=== PATIENT | male | born 1930 | race Caucasian/White ===

== ENCOUNTER 2017-08-08 08:22 | Inpatient (IN) | payer MEDICARE, OTHER ==
[2017-08-08] MEDS ORDERED: HYDROmorphone 1 MG/ML 1 ML SYRINGE IVP STA (08:32)
[2017-08-08] MEDS ORDERED: SODIUM CHLORIDE 0.9% 1,000 ML IV STA (08:32)
[2017-08-08] MEDS ORDERED: RX INFO: IV CONTRAST WAS GIVEN 1 EACH MISC MISCELLANE PRN (08:32)
--- NOTE | 2017-08-08 08:47 | ED ---
General Adult HPI - General Stated complaint: ABDOMINAL PAIN Time Seen by Provider: 08/08/17 08:24 Source: patient, EMS, RN notes reviewed Mode of arrival: EMS Limitations: no limitations - History of Present Illness Initial comments: 86-year-old male presents to the emergency Department chief complaint of abdominal hernial pain. Patient states had a hernia for many years the last night it started out and he cannot get it back in and now is red and tender. Patient denies any nausea or vomiting with this. Patient denies any fever chills. Patient states been on for about 12 hours. Patient states he was concerned due to the pain and the fact that it won't go back in [place] thought that he should be evaluated. Patient states is not currently having any other symptoms at this time. Patient denies any fever chills with this any changes in bowel or bladder habits. Patient denies any recent fever, chills, shortness of breath, chest pain, back pain, nausea vomiting, numbness or tingling, dysuria or hematuria, constipation or diarrhea, headaches or visual changes, or any other current symptoms. - Related Data Home Medications Medication Instructions Recorded Confirmed Ascorbic Acid [Vitamin C] 500 mg PO DAILY 08/08/17 08/08/17 Cholecalciferol [Vitamin D3] 500 unit PO Q48H 08/08/17 08/08/17 Docusate [Colace] 100 mg PO DAILY 08/08/17 08/08/17 Ferrous Sulfate [Feosol] 325 mg PO DAILY 08/08/17 08/08/17 Multivitamins, Thera [Multivitamin 1 tab PO DAILY 08/08/17 08/08/17 (formulary)] Omeprazole [PriLOSEC] 20 mg PO AC-BRKFST 08/08/17 08/08/17 amLODIPine [Norvasc] 2.5 mg PO BID 08/08/17 08/08/17 buPROPion SR [Wellbutrin Sr] 100 mg PO DAILY 08/08/17 08/08/17 cycloSPORINE [Restasis] 1 applicator BOTH EYES DAILY PRN 08/08/17 08/08/17 Allergies Allergy/AdvReac Type Severity Reaction Status Date / Time No Known Allergies Allergy Verified 08/08/17 09:30 Review of Systems ROS Statement: Those systems with pertinent positive or pertinent negative responses have been documented in the HPI. ROS Other: All systems not noted in ROS Statement are negative. Past Medical History Past Medical History: GERD/Reflux, Hypertension Additional Past Medical History / Comment(s): anemia History of Any Multi-Drug Resistant Organisms: None Reported Past Surgical History: Tonsillectomy Past Psychological History: Anxiety Smoking Status: Never smoker Past Alcohol Use History: None Reported Past Drug Use History: None Reported General Exam - General Exam Comments Initial Comments: General: The patient is awake and alert, in no distress, and does not appear acutely ill. Eye: Pupils are equal, round and reactive to light, extra-ocular movements are intact; there is normal conjunctiva bilaterally. No signs of icterus. Ears, nose, mouth and throat: There are moist mucous membranes and no oral lesions. Neck: The neck is supple, there is no tenderness. Cardiovascular: There is a regular rate and rhythm. No murmur, rub or gallop is appreciated. Respiratory: Lungs are clear to auscultation, respirations are non-labored, breath sounds are equal. No wheezes, stridor, rales, or rhonchi. Gastrointestinal: Soft, non-distended, patient does appear to have abdominal umbilical hernia that does appear to be non-reducible it is read. Minimal tenderness to palpation. abdomen without masses or organomegaly noted. There is no rebound or guarding present. No CVA tenderness. Bowel sounds are unremarkable. Back: There is no tenderness to palpation in the midline. There is no obvious deformity. No rashes noted. Musculoskeletal: Normal ROM, no tenderness, There is no pedal edema. There is no calf tenderness or swelling. Sensation intact. Pulses equal bilaterally 2+. Neurological: CN II-XII intact, There are no obvious motor or sensory deficits. Coordination appears grossly intact. Speech is normal. Skin: Skin is warm and dry and no rashes or lesions are noted. Psychiatric: Cooperative, appropriate mood & affect, normal judgment. Limitations: no limitations Course Vital Signs 08/08/17 08/08/17 08:31 10:41 Temperature 98.1 F 97.9 F Pulse Rate 63 70 Respiratory 18 15 Rate Blood Pressure 171/71 177/82 O2 Sat by Pulse 96 93 L Oximetry Medical Decision Making - Medical Decision Making 86-year-old male presents for abdominal wall hernia. This time the patient's CAT scan has been reviewed that does show a small bowel obstruction with an incarcerated hernia. Patient has no nausea and vomiting at this time. We will admit the patient to Dr. Cruz for further evaluation and care. We will start Rocephin and Flagyl for the patient. Patient states his pain is tolerable. At this time we will admit the patient in agreement with plan. - Lab Data Result diagrams: 08/08/17 08:50 08/08/17 08:50 Lab Results 08/08/17 08/08/17 08/08/17 Range/Units 08:50 08:50 08:50 WBC 9.9 (3.8-10.6) k/uL RBC 4.89 (4.30-5.90) m/uL Hgb 14.3 (13.0-17.5) gm/dL Hct 42.7 (39.0-53.0) % MCV 87.4 (80.0-100.0) fL MCH 29.2 (25.0-35.0) pg MCHC 33.4 (31.0-37.0) g/dL RDW 14.9 (11.5-15.5) % Plt Count 173 (150-450) k/uL Neutrophils % 88 % Lymphocytes % 5 % Monocytes % 5 % Eosinophils % 1 % Basophils % 0 % Neutrophils # 8.7 H (1.3-7.7) k/uL Lymphocytes # 0.5 L (1.0-4.8) k/uL Monocytes # 0.5 (0-1.0) k/uL Eosinophils # 0.1 (0-0.7) k/uL Basophils # 0.0 (0-0.2) k/uL Sodium 133 L (137-145) mmol/L Potassium 4.4 (3.5-5.1) mmol/L Chloride 98 (98-107) mmol/L Carbon Dioxide 24 (22-30) mmol/L Anion Gap 11 mmol/L BUN 16 (9-20) mg/dL Creatinine 0.78 (0.66-1.25) mg/dL Est GFR (MDRD) Af Amer >60 (>60 ml/min/1.73 sqM) Est GFR (MDRD) Non-Af >60 (>60 ml/min/1.73 sqM) Glucose 108 H (74-99) mg/dL Plasma Lactic Acid Willie 1.0 (0.7-2.0) mmol/L Calcium 8.7 (8.4-10.2) mg/dL Total Bilirubin 0.5 (0.2-1.3) mg/dL AST 29 (17-59) U/L ALT 39 (21-72) U/L Alkaline Phosphatase 87 (38-126) U/L Total Protein 6.6 (6.3-8.2) g/dL Albumin 3.5 (3.5-5.0) g/dL - Radiology Data Radiology results: report reviewed, image reviewed Disposition Clinical Impression: Incarcerated hernia of abdominal cavity, Small bowel obstruction Disposition: ADMITTED IP TO THIS [facility] Condition: Stable Referrals: Gerardo Flynn MD [Primary Care Provider] - 1-2 days Decision Date: 08/08/17 Decision Time: 10:58
[2017-08-08 09:09] LABS: Basophils % (A) 0 %; CH 28.8; CHCM 33.1; Eosinophils # (A) 0.1 k/uL (0-0.7); Eosinophils % (A) 1 %; HCT 42.7 % (39.0-53.0); HDW 2.39; HGB 14.3 gm/dL (13.0-17.5); Luc # (Auto) 0.16; Luc % (Auto) 2; Lymphocytes # (A) 0.5 k/uL (1.0-4.8); Lymphocytes % (A) 5 %; MCH 29.2 pg (25.0-35.0); MCHC 33.4 g/dL (31.0-37.0); MCV 87.4 fL (80.0-100.0); Mean Platelet Volume 7.5; Monocytes # (A) 0.5 k/uL (0-1.0); Monocytes % (A) 5 %; Neutrophils # (A) 8.7 k/uL (1.3-7.7); Neutrophils % (A) 88 %; RBC 4.89 m/uL (4.30-5.90); RDW 14.9 % (11.5-15.5); WBC 9.9 k/uL (3.8-10.6); WBC (Perox) 10.23
[2017-08-08 09:29] LABS: ALT 39 U/L (21-72); AST 29 U/L (17-59); Alkaline Phosphatase 87 U/L (38-126); Anion Gap 11 mmol/L; Blood Urea Nitrogen 16 mg/dL (9-20); Calcium 8.7 mg/dL (8.4-10.2); Carbon Dioxide 24 mmol/L (22-30); Chloride 98 mmol/L (98-107); Glucose 108 mg/dL (74-99); Non-African American GFR(MDRD) >60 (>60 ml/min/1.73 sqM); Potassium 4.4 mmol/L (3.5-5.1); Sodium 133 mmol/L (137-145); Total Bilirubin 0.5 mg/dL (0.2-1.3); Total Protein 6.6 g/dL (6.3-8.2)
--- NOTE | 2017-08-08 10:45 | CT ---
EXAMINATION TYPE: CT abdomen pelvis w con DATE OF EXAM: 08/08/2017 REFERENCE: NONE HISTORY: Pain HISTORY: large bulge under belly button/pain mid ab REFERENCE: NONE CT DLP: 607.90 mGy Automated exposure control for dose reduction was used. TECHNIQUE: Helical acquisition through the abdomen and pelvis was obtained following the oral ingesti on of without Oral Contrast and following intravenous administration of 100 mL of Omnipaque 300. The data was reformatted in axial, coronal and sagittal projections. FINDINGS: Visualized portions of the lungs are clear. There is no pleural or pericardial fluid. The heart is upper limits of normal in size. There is extensive atheromatous calcification including the coronary arteries. There is circumferenti al thrombus within the aorta. There is a moderate-sized hiatal hernia. Within the abdomen, the liver is normal in size. The spleen and gallbladder are normal. Both adrenal glands are normal. Both kidneys demonstrate function. There is a simple appearing, 2.7 cm right renal cyst arising from the mid to lower pole of the right kidney. The pancreas is unremarkable. There is no significant retroperitoneal, iliac or inguinal adenopathy. The prostate gland is enlarged. The bladder wall is thickened measuring 8 mm. The bladder however, is not distended. There is extensive diverticular change throughout the left side of the colon without radiographic margo dence of diverticulitis. The appendix is not seen with certainty. There is a ventral hernia containing small bowel. The mouth measures 2.4 cm. The proximal small bowel is dilated. The distal small bowel is collapsed. No free fluid and no free air is seen. There is an indirect inguinal hernia on the left containing fat only. There is degenerative disc disease, facet arthropathy and hypertrophic spondylosis throughout the spi ne. IMPRESSION: 1. PROXIMAL SMALL BOWEL OBSTRUCTION SECONDARY TO AN INCARCERATED VENTRAL HERNIA. THE MOUTH OF THE HER YANET MEASURES 2.4 CM. 2. SMALL HIATAL HERNIA. 3. SIMPLE APPEARING RIGHT RENAL CYST. 4. INDIRECT LEFT INGUINAL HERNIA. 5. MODERATE HIATAL HERNIA. 6. THICKENING OF THE BLADDER WALL. 7. EXTENSIVE LEFT-SIDED DIVERTICULOSIS. 8. DEGENERATIVE CHANGES WITHIN THE SPINE.
[2017-08-08] MEDS ORDERED: HYDROmorphone 1 MG/ML 1 ML SYRINGE IV PRN (10:59)
[2017-08-08] MEDS ORDERED: ONDANSETRON 4 MG/2 ML VIAL IVP PRN (10:59)
[2017-08-08] MEDS ORDERED: NALOXONE 0.4 MG/ML 1 ML VIAL IV PRN ×2 (10:59→15:34)
[2017-08-08] MEDS ORDERED: SODIUM CHLORIDE 0.9% 1,000 ML IV SCH (11:00)
[2017-08-08] MEDS ORDERED: cycloSPORINE 0.05% OPHTH 0.4 ML DROPERETTE BOTH EYES PRN (11:00)
[2017-08-08] MEDS ORDERED: metroNIDAZOLE-NS PMX 500 MG in SALINE 1 100ML.BAG IVPB STA (11:53)
[2017-08-08] MEDS ORDERED: ceFAZolin 2 GM in SODIUM CHLORIDE 0.9% 100 ML IVPB ONE (11:53)
--- NOTE | 2017-08-08 11:53 | P.GSHP ---
History of Present Illness H&P Date: 08/08/17 Chief Complaint: Abdominal pain 86-year-old male presents emergency department complaining of abdominal pain. He states he has had a hernia for many years however it has not caused him this kind of pain. He states that there is a feeling of fullness at that site. He denies any nausea denies any vomiting. He has not complaining of any change in bowel function. He states that the hernia site is painful to touch. He states his last colonoscopy was a few months ago and everything at that point was normal. He denies any fevers, chills, chest pain or shortness of breath. - Review of Systems All systems: negative Past Medical History Past Medical History: GERD/Reflux, Hypertension Additional Past Medical History / Comment(s): anemia History of Any Multi-Drug Resistant Organisms: None Reported Past Surgical History: Tonsillectomy Past Psychological History: Anxiety Smoking Status: Never smoker Past Alcohol Use History: None Reported Past Drug Use History: None Reported Medications and Allergies Home Medications Medication Instructions Recorded Confirmed Type Ascorbic Acid [Vitamin C] 500 mg PO DAILY 08/08/17 08/08/17 History Cholecalciferol [Vitamin D3] 500 unit PO Q48H 08/08/17 08/08/17 History Docusate [Colace] 100 mg PO DAILY 08/08/17 08/08/17 History Ferrous Sulfate [Feosol] 325 mg PO DAILY 08/08/17 08/08/17 History Multivitamins, Thera [Multivitamin 1 tab PO DAILY 08/08/17 08/08/17 History (formulary)] Omeprazole [PriLOSEC] 20 mg PO AC-BRKFST 08/08/17 08/08/17 History amLODIPine [Norvasc] 2.5 mg PO BID 08/08/17 08/08/17 History buPROPion SR [Wellbutrin Sr] 100 mg PO DAILY 08/08/17 08/08/17 History cycloSPORINE [Restasis] 1 applicator BOTH EYES DAILY PRN 08/08/17 08/08/17 History Allergies Allergy/AdvReac Type Severity Reaction Status Date / Time No Known Allergies Allergy Verified 08/08/17 09:30 Surgical - Exam Osteopathic Statement: *. No significant issues noted on an osteopathic structural exam other than those noted in the History and Physical/Consult. Vital Signs Temp Pulse Resp BP Pulse Ox 98.1 F 63 18 171/71 96 08/08/17 08:31 08/08/17 08:31 08/08/17 08:31 08/08/17 08:31 08/08/17 08:31 - General well nourished, no distress - Eyes PERRL, normal ocular movement - ENT normal mucosa, no hearing loss - Neck no masses, no bruits, trachea midline, no lymphadectomy - Respiratory normal expansion, normal respiratory effort - Cardiovascular Rhythm: regular Heart Sounds: normal: S1, S2 - Abdomen Soft, midline hernia notable with some surrounding erythema, nonreducible, abdomen nondistended, no rebound, no guarding - Psychiatric oriented to time, oriented to person, oriented to place, speech is normal, memory intact Results - Labs 08/08/17 08:50 08/08/17 08:50 Abnormal Lab Results - Last 24 Hours (Table) 08/08/17 08/08/17 Range/Units 08:50 08:50 Neutrophils # 8.7 H (1.3-7.7) k/uL Lymphocytes # 0.5 L (1.0-4.8) k/uL Sodium 133 L (137-145) mmol/L Glucose 108 H (74-99) mg/dL Diabetes panel 08/08/17 Range/Units 08:50 Sodium 133 L (137-145) mmol/L Potassium 4.4 (3.5-5.1) mmol/L Chloride 98 (98-107) mmol/L Carbon Dioxide 24 (22-30) mmol/L BUN 16 (9-20) mg/dL Creatinine 0.78 (0.66-1.25) mg/dL Glucose 108 H (74-99) mg/dL Calcium 8.7 (8.4-10.2) mg/dL AST 29 (17-59) U/L ALT 39 (21-72) U/L Alkaline Phosphatase 87 (38-126) U/L Total Protein 6.6 (6.3-8.2) g/dL Albumin 3.5 (3.5-5.0) g/dL Calcium panel 08/08/17 Range/Units 08:50 Calcium 8.7 (8.4-10.2) mg/dL Albumin 3.5 (3.5-5.0) g/dL Pituitary panel 08/08/17 Range/Units 08:50 Sodium 133 L (137-145) mmol/L Potassium 4.4 (3.5-5.1) mmol/L Chloride 98 (98-107) mmol/L Carbon Dioxide 24 (22-30) mmol/L BUN 16 (9-20) mg/dL Creatinine 0.78 (0.66-1.25) mg/dL Glucose 108 H (74-99) mg/dL Calcium 8.7 (8.4-10.2) mg/dL Adrenal panel 08/08/17 Range/Units 08:50 Sodium 133 L (137-145) mmol/L Potassium 4.4 (3.5-5.1) mmol/L Chloride 98 (98-107) mmol/L Carbon Dioxide 24 (22-30) mmol/L BUN 16 (9-20) mg/dL Creatinine 0.78 (0.66-1.25) mg/dL Glucose 108 H (74-99) mg/dL Calcium 8.7 (8.4-10.2) mg/dL Total Bilirubin 0.5 (0.2-1.3) mg/dL AST 29 (17-59) U/L ALT 39 (21-72) U/L Alkaline Phosphatase 87 (38-126) U/L Total Protein 6.6 (6.3-8.2) g/dL Albumin 3.5 (3.5-5.0) g/dL - Imaging CT scan - abdomen: image reviewed (Small bowel obstruction secondary to small bowel being stuck in ventral hernia) Assessment and Plan (1) Incarcerated hernia of abdominal cavity Status: Acute Plan: Plan to go to or for reduction of hernia contents and hernia repair Keep nothing by mouth Heparin subq Preop antibiotics Preoperative management Further recommendations to follow
[2017-08-08] MEDS ORDERED: VECURONIUM 10 MG VIAL IV ONE (12:58)
[2017-08-08] MEDS ORDERED: LACTATED RINGERS 1,000 ML IV ONE ×3 (12:58→15:34)
[2017-08-08] MEDS ORDERED: LIDOCAINE 1% INJ 10MG/ML (20 ML MDV) ONE (12:58)
[2017-08-08] MEDS ORDERED: SUCCINYLCHOLINE CHLORIDE VIAL 200 MG/10 ML VIAL IV ONE (12:58)
[2017-08-08] MEDS ORDERED: DEXAMETHASONE SOD PHOS (MDV) 100 MG/10 ML VIAL ONE (12:58)
[2017-08-08] MEDS ORDERED: fentaNYL (PF) 50 MCG/ML 2 ML AMP ONE (12:58)
[2017-08-08] MEDS ORDERED: LABETALOL 5 MG/ML VIAL MDV ONE (12:58)
[2017-08-08] MEDS ORDERED: HEPARIN SODIUM,PORCINE 5,000 UNIT/ML 1 ML VIAL ONE (12:58)
[2017-08-08] MEDS ORDERED: GLYCOPYRROLATE 0.2 MG/ML 2 ML VIAL ONE (12:58)
[2017-08-08] MEDS ORDERED: ONDANSETRON 4 MG/2 ML VIAL ONE (12:58)
[2017-08-08] MEDS ORDERED: PHENYLEPHRINE-0.9% NACL SYG 1 MG/10 ML SYRINGE ONE (12:58)
[2017-08-08] MEDS ORDERED: NEOSTIGMINE 1 MG/ML 10 ML VIAL ONE (12:58)
[2017-08-08] MEDS ORDERED: BUPIVACAINE-EPI 0.5%-1:200,000 10 ML VIAL SQ ONE (13:20)
--- NOTE | 2017-08-08 14:35 | P.OP ---
Date of Procedure: 08/08/17 Preoperative Diagnosis: Incarcerated ventral hernia Postoperative Diagnosis: Strangulated small bowel in ventral hernia Procedure(s) Performed: #1 diagnostic laparoscopy #2 exploratory laparotomy #3 small bowel resection with primary anastomosis Anesthesia: MIKE Surgeon: Melisa Renee Estimated Blood Loss (ml): 10 Pathology: other (Strangulated small bowel) Condition: stable Disposition: floor Indications for Procedure: This is an 86-year-old gentleman that presented to the emergency department complaining of hardening of a chronic ventral hernia. He states that the status become very painful to touch. On workup in the emergency department he had a CT of the abdomen and pelvis that was performed that showed a small bowel obstruction secondary to incarcerated small bowel. This was not reducible in the emergency department. Secondary to this the patient was informed of a procedure to fix his hernia and reduce the hernia contents and possible small bowel resection. He was explained the risks, benefits and alternatives to the procedure and provided consent prior to entering the operating suite Operative Findings: Strangulated small bowel in hernia sac with beginning of necrosis Description of Procedure: The patient was brought into the operating suite placed in supine position on operating table sedation was provided by anesthesia and the patient underwent endotracheal intubation. The patient was then prepped and draped in regular sterile fashion. A small 5 mm incision was made in the left upper quadrant and the abdomen was entered using direct visualization with a 5 mm trocar. Pneumoperitoneum was then applied. Once adequate pneumoperitoneum was achieved and laparoscope was placed into the abdomen and the incarcerated hernia was clearly visualized. It was clear that the portion of the bowel that was incarcerated had become strangulated. Mild attempts were made to reduce the hernia contents however these were unsuccessful. At this point an exploratory laparotomy conversion was made. A midline incision was made dissection was then carried to the hernia sac and contents. Dissection was made in the 360 manner to free the hernia sac and contents from the fascial defect. The fascial defect was then slightly enlarged and the ventral hernia contents were freed. This regulated bowel portion was then grasped and bowel graspers were placed both proximally and distally. The entire small bowel was then run from the ileocecal valve to the ligament of Treitz. There was no additional evidence of strangulation or pathology of small bowel. This strangulated portion of bowel was then resected using a CHRISTOPHE 75 blue load stapler at the proximal and distal portions of this strangulated bowel. LigaSure device was used to free the mesentery from the small bowel. A anastomosis was created by creating 2 enterotomies and inserting the stapler and firing a 75 mm blue load CHRISTOPHE stapler. The final enterotomy was then closed using a TA 60 mm blue load stapler. The anastomosis was then palpated and noted to be patent. The mesenteric defect was closed using a running 0 Vicryl suture. 2 L of irrigation was then placed within the abdomen and suctioned out. The fascial defect was then closed using multiple 0 Vicryl sutures in [id number] fashion. Skin incision was then closed using skin jeana. The patient tolerated the procedure well was extubated and sent to postanesthesia care unit in stable condition.
[2017-08-08] MEDS: HYDROmorphone 1 MG/ML 1 ML SYRINGE IVP ONE ×2 (14:55→15:06)
[2017-08-08 15:54] VITALS: BMI 26.6
[2017-08-08] MEDS: HEPARIN SODIUM,PORCINE 5,000 UNIT/ML 1 ML VIAL SQ SCH ×2 (16:30→16:46)
[2017-08-08] MEDS: CHOLECALCIFEROL 1,000 UNIT TAB PO SCH (16:30)
[2017-08-08] MEDS: ceFAZolin 2 GM in SODIUM CHLORIDE 0.9% 100 ML IVPB SCH (16:40)
[2017-08-08] MEDS: metroNIDAZOLE-NS PMX 500 MG in SALINE 1 100ML.BAG IVPB SCH ×2 (17:45→18:51)
[2017-08-08] MEDS: amLODIPine 2.5 MG TAB PO SCH (20:28)
--- NOTE | 2017-08-08 21:47 | XR ---
EXAMINATION TYPE: XR chest 1V portable DATE OF EXAM: 08/08/2017 COMPARISON: NONE HISTORY: Mucosal gastric tube placement. TECHNIQUE: Single frontal view of the chest is obtained. FINDINGS: The exam is limited secondary to patient body habitus and underpenetration. Nasogastric tu be is seen at least to the level of the gastroesophageal junction, however it is not visualized past this point. Abdominal radiograph could be performed for further evaluation. Small left pleural effusi on is seen as well as enlarged cardiac silhouette. Remainder the lungs are clear. IMPRESSION: 1. Some limitation and exam technique and patient body habitus and therefore the nasogastric tube is seen at the level of gastroesophageal junction but not beyond. Abdominal radiograph is recommended fo r placement. 2. Small left pleural effusion.
[2017-08-09] MEDS: HEPARIN SODIUM,PORCINE 5,000 UNIT/ML 1 ML VIAL SQ SCH ×4 (00:20→23:33)
[2017-08-09] MEDS: metroNIDAZOLE-NS PMX 500 MG in SALINE 1 100ML.BAG IVPB SCH (00:20)
[2017-08-09] MEDS: ceFAZolin 2 GM in SODIUM CHLORIDE 0.9% 100 ML IVPB SCH ×4 (00:20→23:33)
[2017-08-09] MEDS: HYDROmorphone 0.5 MG/0.5 ML SYRINGE IVP PRN ×2 (00:24→23:33)
[2017-08-09] MEDS ORDERED: BENZOCAINE SPRAY 1 SPRAY CAN MUCOUS MEM PRN (06:02)
[2017-08-09 07:02] LABS: Basophils % (A) 0 %; CH 28.5; CHCM 32.1; Eosinophils % (A) 0 %; HCT 40.3 % (39.0-53.0); HDW 2.51; Luc # (Auto) 0.14; Luc % (Auto) 1; Lymphocytes # (A) 0.5 k/uL (1.0-4.8); Lymphocytes % (A) 4 %; MCH 28.7 pg (25.0-35.0); MCHC 32.2 g/dL (31.0-37.0); MCV 89.3 fL (80.0-100.0); Mean Platelet Volume 7.3; Monocytes # (A) 0.4 k/uL (0-1.0); Monocytes % (A) 4 %; Neutrophils # (A) 9.8 k/uL (1.3-7.7); Neutrophils % (A) 90 %; RBC 4.52 m/uL (4.30-5.90); RDW 15.3 % (11.5-15.5); WBC 10.9 k/uL (3.8-10.6); WBC (Perox) 11.47
[2017-08-09 07:13] LABS: Anion Gap 11 mmol/L; Blood Urea Nitrogen 18 mg/dL (9-20); Calcium 8.1 mg/dL (8.4-10.2); Carbon Dioxide 20 mmol/L (22-30); Chloride 105 mmol/L (98-107); Glucose 128 mg/dL (74-99); Non-African American GFR(MDRD) >60 (>60 ml/min/1.73 sqM); Potassium 4.1 mmol/L (3.5-5.1); Sodium 136 mmol/L (137-145)
[2017-08-09] MEDS ORDERED: PANTOPRAZOLE 40 MG TABLET PO SCH (07:30)
--- NOTE | 2017-08-09 07:32 | XR ---
INDICATION: NG tube placement COMPARISON: CXR 08/08/17 FINDINGS: Single frontal view of the chest is provided. Interval advancement of nasogastric tube now extending into the stomach. Persistent small left pleural effusion. No pneumothorax. Stable cardiomegaly and thoracic aortic atherosclerosis. No acute osseous findings. IMPRESSION: 1. Interval advancement of the nasogastric tube now extending into the stomach. 2. Persistent small left pleural effusion.
--- NOTE | 2017-08-09 08:25 | P.PN ---
Subjective Principal diagnosis: Strangulated small bowel in ventral hernia Patient seen and examined at bedside. NG tube is in place. He states that overall he is comfortable. He denies any bowel function at this time. He states his abdominal pain is tolerable. Denies any nausea denies any vomiting. He denies fevers, chills, chest pain or shortness of breath Objective - Vital Signs Vital signs: Vital Signs Temp 97.9 F 08/09/17 07:00 Pulse 74 08/09/17 07:00 Resp 12 08/09/17 07:00 BP 144/68 08/09/17 08:18 Pulse Ox 95 08/09/17 07:00 Intake & Output 08/08/17 08/09/17 08/09/17 18:59 06:59 18:59 Intake Total 2250 Output Total 100 200 Balance 2150 -200 Weight 72.575 kg Intake: IV 1150 Amount of Fluid Infused ( 1100 ml) Output: Urine 200 Estimated Blood Loss 100 Other: Voiding Method Urinal # Voids 2 - Constitutional General appearance: Present: cooperative, no acute distress - EENT Eyes: Present: EOMI, PERRLA ENT: Present: hearing grossly normal - Neck Neck: Present: normal ROM. Absent: lymphadenopathy, stridor - Respiratory Details: No difficulty with respiration - Cardiovascular Rhythm: regular Heart sounds: normal: S1, S2 - Gastrointestinal Gastrointestinal Comment(s): Soft, appropriate tenderness, nondistended, no rebound, no guarding, incision site clean dry and intact - Integumentary Integumentary: Present: normal turgor - Psychiatric Psychiatric: Present: A&O x's 3, appropriate affect, intact judgment & insight - Labs CBC & Chem 7: 08/09/17 06:33 08/09/17 06:33 Labs: Abnormal Lab Results - Last 24 Hours (Table) 08/08/17 08/08/17 08/09/17 Range/Units 08:50 08:50 06:33 WBC 10.9 H (3.8-10.6) k/uL Neutrophils # 8.7 H 9.8 H (1.3-7.7) k/uL Lymphocytes # 0.5 L 0.5 L (1.0-4.8) k/uL Sodium 133 L (137-145) mmol/L Carbon Dioxide (22-30) mmol/L Glucose 108 H (74-99) mg/dL Calcium (8.4-10.2) mg/dL 08/09/17 Range/Units 06:33 WBC (3.8-10.6) k/uL Neutrophils # (1.3-7.7) k/uL Lymphocytes # (1.0-4.8) k/uL Sodium 136 L (137-145) mmol/L Carbon Dioxide 20 L (22-30) mmol/L Glucose 128 H (74-99) mg/dL Calcium 8.1 L (8.4-10.2) mg/dL Assessment and Plan (1) Incarcerated hernia of abdominal cavity Status: Acute Plan: Status post exploratory laparotomy with small bowel resection and hernia repair Continue nothing by mouth and IV fluids Continue NG tube Continue pain control Increase activity Okay for by mouth meds Medical recommendations appreciated
[2017-08-09] MEDS ORDERED: metroNIDAZOLE 500 MG TAB PO SCH (09:00)
[2017-08-09] MEDS: PANTOPRAZOLE 40 MG/10 ML VIAL IV SCH (09:36)
[2017-08-09] MEDS: ASCORBIC ACID 500 MG TAB PO SCH ×2 (09:36→10:03)
[2017-08-09] MEDS: buPROPion SR 100 MG TABLET.ER PO SCH ×2 (09:36→10:04)
[2017-08-09] MEDS: FERROUS SULFATE 325 MG TAB PO SCH ×2 (09:36→10:04)
[2017-08-09] MEDS: amLODIPine 2.5 MG TAB PO SCH (09:36)
[2017-08-09] MEDS: DOCUSATE 100 MG CAP PO SCH ×2 (09:36→10:04)
[2017-08-09] MEDS: PIPERACILLIN-TAZOBACTAM 3.375 GM in DEXTROSE/WATER 1 50ML.BAG IVPB SCH ×2 (11:50→17:17)
[2017-08-09] MEDS: MULTIVITAMINS, THERA 1 EACH TAB PO SCH (11:57)
[2017-08-09] MEDS ORDERED: LORazepam 2 MG/ML INJ IV PRN (15:10)
[2017-08-09] MEDS: hydrALAZINE HCL 20 MG/ML 1 ML VIAL IVP PRN ×2 (20:09→23:34)
--- NOTE | 2017-08-09 23:38 | CONS ---
CONSULTATION REASON FOR CONSULTATION: Advice regarding hypertension and other medical issues, requested by Dr. Renee. HISTORY OF PRESENT ILLNESS: This 86-year-old gentleman with a past medical history of GERD, hypotension, anxiety, being followed by Dr. Gerardo Flynn in the outpatient setting, was admitted after exploratory laparotomy as well as small bowel resection and primary anastomosis for a strangulated small bowel in hernia sac in and the beginning for necrosis by Dr. Renee. The patient tolerated the procedure. There is no history of any fever, rigors, chills. No history of headache, loss of consciousness. No chest pain or palpitation at this time. PAST MEDICAL HISTORY: 1. History of hypertension. 2. History of GERD. HOME MEDICATIONS: 1. Restasis 1 application daily p.r.n. 2. Wellbutrin XR 100 mg p.o. daily. 3. Norvasc 2.5 mg b.i.d. 4. Multivitamins 1 daily. 5. Iron sulfate 320 mg daily. 6. Colace 100 mg daily. 7. Vitamin D3 500 mg q.48 hours. 8. Vitamin C 500 mg p.o. daily. 9. Prilosec 20 mg before breakfast. ALLERGIES: NONE. FAMILY HISTORY: No history of heart disease or strokes in the family. SOCIAL HISTORY: No history of smoking. No history of alcohol. REVIEW OF SYSTEMS: ENT: No diminished hearing. No diminished vision. CARDIOVASCULAR SYSTEM: No angina, palpitations. RESPIRATORY SYSTEM: As mentioned earlier. GI: As mentioned earlier. : No dysuria or retention. NERVOUS SYSTEM: No numbness, weakness. ALLERGY/IMMUNOLOGY: No asthma, hayfever. MUSCULOSKELETAL: As mentioned earlier. HEMATOLOGY/ONCOLOGY: No history of anemia. ENDOCRINE: No history of diabetes, hypothyroidism. CONSTITUTIONAL: As mentioned earlier. DERMATOLOGY: Negative. RHEUMATOLOGY: Negative. PSYCHIATRY: As mentioned earlier. PHYSICAL EXAMINATION: Patient is alert and oriented x3. Pulse 83, blood pressure 162/70, respiration 17, temperature 97.4, pulse ox 92% on room air. HEENT: Conjunctivae normal. Oral mucosa moist. NECK: No jugular venous distention. No carotid bruit. No lymph node enlargement. CARDIOVASCULAR: S1, S2 muffled. No S3. No S4. RESPIRATORY SYSTEM: Breath sounds diminished at the bases. No rhonchi. No crackles. ABDOMEN: Soft, status post surgery. No mass palpable. LEGS: No edema. No swelling. NERVOUS SYSTEM: No focal deficit. LABS: WBC 10.9, hemoglobin 13. Sodium is 136. ASSESSMENT: 1. Status post exploratory laparotomy and small bowel resection with primary anastomosis for strangulated small bowel in hernia sac with beginning of necrosis. 2. Hypertension. 3. Anxiety. 4. Hyponatremia. 5. History of gastroesophageal reflux disease. 6. History of anemia. 7. History of hiatal hernia repair. 8. History of anxiety. 9. FULL CODE. RECOMMENDATIONS AND DISCUSSION: In this 86-year-old gentleman who presented with multiple medical problems, we will we will monitor the patient closely, continue the current medications, continue with symptomatic treatment. I would use p.r.n. hydralazine as well as Ativan at this time. Otherwise, DVT prophylaxis. Will follow the patient closely with you. The patient may be asked to follow up with his primary physician closely after discharge. Thank you, Dr. Renee, for letting us participate in the care of this patient. MMELIL / IJN: [id number] /
[2017-08-10] MEDS: PIPERACILLIN-TAZOBACTAM 3.375 GM in DEXTROSE/WATER 1 50ML.BAG IVPB SCH ×3 (01:02→19:21)
[2017-08-10] MEDS: amLODIPine 2.5 MG TAB PO SCH ×3 (01:34→20:34)
[2017-08-10] MEDS: hydrALAZINE HCL 20 MG/ML 1 ML VIAL IVP PRN ×3 (04:05→20:15)
[2017-08-10 07:27] LABS: Basophils % (A) 0 %; CH 28.4; CHCM 32.3; Eosinophils % (A) 0 %; HCT 40.8 % (39.0-53.0); HDW 2.48; Luc # (Auto) 0.13; Luc % (Auto) 1; Lymphocytes # (A) 0.9 k/uL (1.0-4.8); Lymphocytes % (A) 7 %; MCH 28.1 pg (25.0-35.0); MCHC 31.8 g/dL (31.0-37.0); MCV 88.3 fL (80.0-100.0); Mean Platelet Volume 7.4; Monocytes # (A) 0.5 k/uL (0-1.0); Monocytes % (A) 4 %; Neutrophils # (A) 11.7 k/uL (1.3-7.7); Neutrophils % (A) 88 %; RBC 4.62 m/uL (4.30-5.90); RDW 15.4 % (11.5-15.5); WBC 13.4 k/uL (3.8-10.6); WBC (Perox) 14.07
[2017-08-10 07:41] LABS: Anion Gap 11 mmol/L; Blood Urea Nitrogen 16 mg/dL (9-20); Calcium 8.3 mg/dL (8.4-10.2); Carbon Dioxide 22 mmol/L (22-30); Chloride 103 mmol/L (98-107); Glucose 81 mg/dL (74-99); Non-African American GFR(MDRD) >60 (>60 ml/min/1.73 sqM); Potassium 3.8 mmol/L (3.5-5.1); Sodium 136 mmol/L (137-145)
[2017-08-10] MEDS: HEPARIN SODIUM,PORCINE 5,000 UNIT/ML 1 ML VIAL SQ SCH ×2 (08:25→18:23)
[2017-08-10] MEDS: ceFAZolin 2 GM in SODIUM CHLORIDE 0.9% 100 ML IVPB SCH ×2 (08:25→18:23)
[2017-08-10] MEDS: buPROPion SR 100 MG TABLET.ER PO SCH (08:31)
[2017-08-10] MEDS: FERROUS SULFATE 325 MG TAB PO SCH (08:31)
[2017-08-10] MEDS: PANTOPRAZOLE 40 MG/10 ML VIAL IV SCH (08:31)
[2017-08-10] MEDS: DOCUSATE 100 MG CAP PO SCH (08:31)
[2017-08-10] MEDS: ASCORBIC ACID 500 MG TAB PO SCH (08:31)
[2017-08-10] MEDS: CHOLECALCIFEROL 1,000 UNIT TAB PO SCH (11:43)
[2017-08-10] MEDS: MULTIVITAMINS, THERA 1 EACH TAB PO SCH (11:43)
--- NOTE | 2017-08-10 13:25 | P.PN ---
Subjective Principal diagnosis: Strangulated small bowel in ventral hernia Patient seen and examined at bedside. He states that he has some mild abdominal soreness. He denies any nausea and denies any vomiting. His NG tube is in place with approximately 500 mL output over the last 24 hours. He denies any bowel function. He is ambulating and urinating well. Objective - Vital Signs Vital signs: Vital Signs Temp 98 F 08/10/17 07:00 Pulse 89 08/10/17 07:00 Resp 14 08/10/17 08:00 BP 156/68 08/10/17 07:00 Pulse Ox 94 L 08/10/17 07:00 Intake & Output 08/09/17 08/10/17 08/10/17 18:59 06:59 18:59 Intake Total 1187 Output Total 300 25 Balance 1187 -300 -25 Intake: Intake, IV Titration 950 Amount Lactated Ringers 1,000 ml 800 @ 100 mls/hr IV .Q10H [facility] Rx#:[id number] Piperacillin-Tazobactam 3 50 .375 gm In Dextrose/Water 1 50ml.bag @ 12.5 mls/hr IVPB Q8HR [facility] Rx#: [id number] metroNIDAZOLE-NS PMX 500 100 mg In Saline 1 100ml.bag @ 100 mls/hr IVPB Q8HR [facility] Rx#:[id number] Oral 237 Output: Drainage 25 25 Medial Abdomen 25 25 Urine 275 Other: Voiding Method Toilet Urinal - Constitutional General appearance: Present: cooperative, no acute distress - EENT Eyes: Present: EOMI, PERRLA ENT: Present: hearing grossly normal - Neck Neck: Present: normal ROM. Absent: lymphadenopathy, stridor - Respiratory Details: No difficulty with respiration - Cardiovascular Rhythm: regular Heart sounds: normal: S1, S2 - Gastrointestinal Gastrointestinal Comment(s): Soft, appropriate tenderness, nondistended, no rebound, no guarding, incision site clean dry and intact - Integumentary Integumentary: Present: normal turgor - Psychiatric Psychiatric: Present: A&O x's 3, appropriate affect, intact judgment & insight - Labs CBC & Chem 7: 08/10/17 06:44 08/10/17 06:44 Labs: Abnormal Lab Results - Last 24 Hours (Table) 08/10/17 08/10/17 Range/Units 06:44 06:44 WBC 13.4 H (3.8-10.6) k/uL Neutrophils # 11.7 H (1.3-7.7) k/uL Lymphocytes # 0.9 L (1.0-4.8) k/uL Sodium 136 L (137-145) mmol/L Calcium 8.3 L (8.4-10.2) mg/dL Assessment and Plan (1) Incarcerated hernia of abdominal cavity Status: Acute Plan: Status post exploratory laparotomy with small bowel resection and hernia repair Continue nothing by mouth and IV fluids Continue NG tube Continue pain control Increase activity Okay for by mouth meds Incentive spirometry Leukocytosis noted, continue Zosyn, no obvious intra-abdominal source Medical recommendations appreciated
--- NOTE | 2017-08-10 16:20 | XR ---
EXAMINATION TYPE: XR chest 1V portable DATE OF EXAM: 08/10/2017 CLINICAL HISTORY: Difficulty breathing progress study. TECHNIQUE: Single AP portable upright view of the chest is obtained. COMPARISON: Chest x-ray from one day earlier. FINDINGS: There is persistent nasogastric tube. There is persistent left basilar opacity. Right lung remains clear. Cardiac silhouette size is stable and upper limits of normal with atherosclerotic tho racic aorta. Osseous structures are demineralized. Degenerative change bilateral shoulders is redemon strated. IMPRESSION: Overall stable findings, persistent patchy left basilar atelectasis and/or infiltrate a nd probable small left pleural effusion.
--- NOTE | 2017-08-10 19:27 | PN ---
PROGRESS NOTE DATE OF SERVICE: 08/10/2017. INTERIM HISTORY: This 86-year-old gentleman who was admitted after expiratory laparotomy also had multiple medical issues. No chest pain. No palpitations. NG tube in situ. The patient's white count is slightly elevated. No fever. Occasional cough is reported. EXAM: Alert, oriented x3. Pulse 89, blood pressure 136/68, respiration 14, temperature 98 degrees, pulse ox 94% on 2 L. HEENT: Normal. CARDIOVASCULAR: S1, S2 RESPIRATORY: Breath sounds diminished in the bases. Bilateral scattered rhonchi. Expiratory wheezing also present. ABDOMEN: Soft, status post surgery. LEGS: No edema, no swelling. NERVOUS SYSTEM: No focal deficits. LABS: WBC 13.2, hemoglobin 13, sodium is 136. ASSESSMENT: 1. Status post exploratory laparotomy, small-bowel resection with primary anastomosis, strangulated small bowel in the hernia sac with the beginning of necrosis. 2. Hypertension. 3. Anxiety. 4. Hyponatremia. 5. History of gastroesophageal reflux disease. 6. History anemia. 7. History of hiatal hernia. 8. History of anxiety. 9. FULL CODE. RECOMMENDATIONS AND DISCUSSION: I recommend to continue current management and symptomatic treatment. Otherwise I would recommend continue with current medications. Continue with symptomatic treatment. I would recommend a portable chest x-ray, to ensure stability. Otherwise incentive spirometry. Continue the rest of the medications. Repeat labs. Further recommendations to follow. See orders for details. Also recommend UA with micro. See orders for details. MMODL / IJN: [id number] /
[2017-08-11] MEDS: HEPARIN SODIUM,PORCINE 5,000 UNIT/ML 1 ML VIAL SQ SCH ×4 (00:58→23:56)
[2017-08-11] MEDS: hydrALAZINE HCL 20 MG/ML 1 ML VIAL IVP PRN ×2 (01:12→21:38)
[2017-08-11 01:43] LABS: Amorphous Sediment,Urine Rare /hpf; Appearance,Urine Clear (Clear); Bacteria,Urine Rare /hpf; Bilirubin,Urine Negative (Negative); Glucose,Urine (UA) Negative (Negative); Ketones,Urine 4+ (Negative); Leukocyte Esterase,Urine Trace (Negative); Mucus,Urine Rare /hpf; Nitrite,Urine Negative (Negative); Particle Count 4582; Protein,Urine 1+ (Negative); RBC,Urine 1 /hpf (0-5); Specific Gravity,Urine 1.032 (1.001-1.035); Squamous Epithelial Cell,Urine <1 /hpf (0-4); UA Billing (MACRO vs. MICRO) MICRO; Urobilinogen,Urine <2.0 mg/dL (<2.0); WBC,Urine 8 /hpf (0-5)
[2017-08-11] MEDS: PIPERACILLIN-TAZOBACTAM 3.375 GM in DEXTROSE/WATER 1 50ML.BAG IVPB SCH ×3 (02:55→20:08)
[2017-08-11 07:03] LABS: Anisocytosis Slight; Basophils % (A) 0 %; CH 29.6; CHCM 33.5; Eosinophils % (A) 0 %; HCT 36.7 % (39.0-53.0); HDW 2.61; HGB 11.8 gm/dL (13.0-17.5); Luc % (Auto) 1; Lymphocytes # (A) 0.8 k/uL (1.0-4.8); Lymphocytes % (A) 7 %; MCH 28.6 pg (25.0-35.0); MCHC 32.1 g/dL (31.0-37.0); MCV 88.9 fL (80.0-100.0); Mean Platelet Volume 7.7; Monocytes # (A) 0.5 k/uL (0-1.0); Monocytes % (A) 4 %; Neutrophils # (A) 10.4 k/uL (1.3-7.7); Neutrophils % (A) 88 %; RBC 4.13 m/uL (4.30-5.90); RDW 16.4 % (11.5-15.5); WBC 11.8 k/uL (3.8-10.6); WBC (Perox) 11.52
[2017-08-11 07:09] LABS: Anion Gap 12 mmol/L; Blood Urea Nitrogen 21 mg/dL (9-20); Calcium 8.1 mg/dL (8.4-10.2); Carbon Dioxide 19 mmol/L (22-30); Chloride 106 mmol/L (98-107); Glucose 71 mg/dL (74-99); Non-African American GFR(MDRD) >60 (>60 ml/min/1.73 sqM); Potassium 3.7 mmol/L (3.5-5.1); Sodium 137 mmol/L (137-145)
[2017-08-11] MEDS: ASCORBIC ACID 500 MG TAB PO SCH (09:57)
[2017-08-11] MEDS: buPROPion SR 100 MG TABLET.ER PO SCH (09:57)
[2017-08-11] MEDS: PANTOPRAZOLE 40 MG/10 ML VIAL IV SCH (09:58)
[2017-08-11] MEDS: FERROUS SULFATE 325 MG TAB PO SCH (09:58)
[2017-08-11] MEDS: DOCUSATE 100 MG CAP PO SCH (09:58)
[2017-08-11] MEDS: amLODIPine 2.5 MG TAB PO SCH ×2 (09:58→20:09)
[2017-08-11] MEDS: MULTIVITAMINS, THERA 1 EACH TAB PO SCH (12:20)
--- NOTE | 2017-08-11 12:44 | P.PN ---
Subjective Progress Note Date: 08/11/17 Principal diagnosis: Strangulated small bowel in ventral hernia Patient seen and examined at bedside. He states his abdominal soreness has improved. He states he is using an incentive spirometer. He has ambulated. His NG tube is in place and has put out 250 mL over the last 24 hours. He denies any bowel function at this time. Objective - Vital Signs Vital signs: Vital Signs Temp 97.9 F 08/11/17 07:00 Pulse 79 08/11/17 07:00 Resp 18 08/11/17 07:00 BP 158/70 08/11/17 07:00 Pulse Ox 94 L 08/11/17 07:00 Intake & Output 08/10/17 08/11/17 08/11/17 18:59 06:59 18:59 Intake Total 150 50 Output Total 250 350 225 Balance -100 -300 -225 Weight 72.575 kg 72.575 kg Intake: Intake, IV Titration 150 50 Amount Piperacillin-Tazobactam 3 50 .375 gm In Dextrose/Water 1 50ml.bag @ 12.5 mls/hr IVPB Q8H [facility] Rx#: [id number] Piperacillin-Tazobactam 3 50 .375 gm In Dextrose/Water 1 50ml.bag @ 12.5 mls/hr IVPB Q8HR [facility] Rx#: [id number] ceFAZolin 2 gm In Sodium 100 Chloride 0.9% 100 ml @ 100 mls/hr IVPB Q8HR [facility] Rx#:[id number] Output: Gastric Drainage 125 Drainage 25 Medial Abdomen 25 Urine 225 225 225 Other: # Voids 1 1 1 - Constitutional General appearance: Present: cooperative, no acute distress - EENT Eyes: Present: EOMI, PERRLA ENT: Present: hearing grossly normal - Neck Neck: Present: normal ROM. Absent: lymphadenopathy, stridor - Respiratory Details: No difficulty with respiration - Cardiovascular Rhythm: regular Heart sounds: normal: S1, S2 - Gastrointestinal Gastrointestinal Comment(s): Soft, appropriate tenderness, nondistended, no rebound, no guarding, incision site clean dry and intact and packing removed today - Integumentary Integumentary: Present: normal turgor - Psychiatric Psychiatric: Present: A&O x's 3, appropriate affect, intact judgment & insight - Labs CBC & Chem 7: 08/11/17 06:26 08/11/17 06:26 Labs: Abnormal Lab Results - Last 24 Hours (Table) 08/11/17 08/11/17 08/11/17 Range/Units 01:20 06:26 06:26 WBC 11.8 H (3.8-10.6) k/uL RBC 4.13 L (4.30-5.90) m/uL Hgb 11.8 L (13.0-17.5) gm/dL Hct 36.7 L (39.0-53.0) % RDW 16.4 H (11.5-15.5) % Neutrophils # 10.4 H (1.3-7.7) k/uL Lymphocytes # 0.8 L (1.0-4.8) k/uL Carbon Dioxide 19 L (22-30) mmol/L BUN 21 H (9-20) mg/dL Glucose 71 L (74-99) mg/dL Calcium 8.1 L (8.4-10.2) mg/dL Urine Protein 1+ H (Negative) Urine Ketones 4+ H (Negative) Ur Leukocyte Esterase Trace H (Negative) Urine WBC 8 H (0-5) /hpf Amorphous Sediment Rare H (None) /hpf Urine Bacteria Rare H (None) /hpf Urine Mucus Rare H (None) /hpf Assessment and Plan (1) Incarcerated hernia of abdominal cavity Status: Acute Plan: Status post exploratory laparotomy with small bowel resection and hernia repair POD#3 Continue nothing by mouth and IV fluids Continue NG tube to low intermittent suction Continue pain control Increase activity Okay for by mouth meds Incentive spirometry Leukocytosis improved, continue Zosyn Medical recommendations appreciated
--- NOTE | 2017-08-11 19:49 | PN ---
PROGRESS NOTE DATE OF SERVICE: 08/11/2017 INTERVAL HISTORY: This 86-year-old gentleman who was admitted after exploratory laparotomy, still has NG tube in situ. The patient white count is elevated but the chest x-ray was done recently showed overall is stable findings but left basilar atelectasis noted. No chest pain. No palpitations. No fever. PHYSICAL EXAM: Alert, oriented, times three. Pulse is 87, blood pressure 141/72, respirations 16, temperature 97.9, pulse ox 94% room air. HEENT: Conjunctivae normal. Neck: No jugular venous distention. No carotid bruit. Cardiovascular: S1, S2 muffled. Respiratory: Breath sounds diminished in the bases. A few scattered rhonchi. No crackles. Abdomen is soft, nontender, status post surgery. Legs: No edema. No swelling. Central nervous system: No focal deficits. LABS: WBC 11.8, hemoglobin 11.8. ASSESSMENT: 1. Status post exploratory laparotomy and small bowel resection with primary anastomosis for strangulated small bowel in the hernia sac with beginning of necrosis. 2. Left lower lobe atelectasis. 3. Hypertension. 4. History of anxiety. 5. Hyponatremia. 6. History of gastroesophageal reflux disease. 7. History of anemia. 8. History of hiatal hernia. 9. History of anxiety. 10.FULL CODE. RECOMMENDATIONS AND DISCUSSION: Recommend to continue current medications and management. Continue symptomatic treatment. At this time, I recommend continue with current medications. DVT prophylaxis. Empiric antibiotics have been given. I would also recommend to add a course of bronchodilators and incentive spirometry. Further recommendations to follow. MMODL / IJN: [id number] /
[2017-08-11] MEDS: LEVALBUTEROL NEB 1.25 MG/3 ML AMP INHALATION SCH (20:21)
[2017-08-12] MEDS: PIPERACILLIN-TAZOBACTAM 3.375 GM in DEXTROSE/WATER 1 50ML.BAG IVPB SCH ×3 (03:46→20:01)
[2017-08-12 07:00] LABS: Basophils % (A) 1 %; CH 28.4; CHCM 32.3; Eosinophils # (A) 0.1 k/uL (0-0.7); Eosinophils % (A) 2 %; HCT 37.3 % (39.0-53.0); HDW 2.56; HGB 12.1 gm/dL (13.0-17.5); Luc # (Auto) 0.14; Luc % (Auto) 2; Lymphocytes # (A) 0.8 k/uL (1.0-4.8); Lymphocytes % (A) 11 %; MCH 28.7 pg (25.0-35.0); MCHC 32.4 g/dL (31.0-37.0); MCV 88.6 fL (80.0-100.0); Mean Platelet Volume 7.2; Monocytes # (A) 0.3 k/uL (0-1.0); Monocytes % (A) 5 %; Neutrophils # (A) 5.7 k/uL (1.3-7.7); Neutrophils % (A) 80 %; RBC 4.21 m/uL (4.30-5.90); RDW 15.5 % (11.5-15.5); WBC 7.1 k/uL (3.8-10.6); WBC (Perox) 7.74
[2017-08-12 07:21] LABS: Anion Gap 10 mmol/L; Blood Urea Nitrogen 23 mg/dL (9-20); Carbon Dioxide 22 mmol/L (22-30); Chloride 107 mmol/L (98-107); Glucose 71 mg/dL (74-99); Non-African American GFR(MDRD) >60 (>60 ml/min/1.73 sqM); Potassium 3.5 mmol/L (3.5-5.1); Sodium 139 mmol/L (137-145)
[2017-08-12] MEDS: PANTOPRAZOLE 40 MG/10 ML VIAL IV SCH (07:52)
[2017-08-12] MEDS: HEPARIN SODIUM,PORCINE 5,000 UNIT/ML 1 ML VIAL SQ SCH ×3 (07:53→23:47)
[2017-08-12] MEDS: hydrALAZINE HCL 20 MG/ML 1 ML VIAL IVP PRN (07:53)
[2017-08-12] MEDS: LEVALBUTEROL NEB 1.25 MG/3 ML AMP INHALATION SCH ×3 (08:01→19:23)
[2017-08-12] MEDS: DOCUSATE 100 MG CAP PO SCH (09:00)
[2017-08-12] MEDS: FERROUS SULFATE 325 MG TAB PO SCH (09:00)
[2017-08-12] MEDS: buPROPion SR 100 MG TABLET.ER PO SCH (09:00)
[2017-08-12] MEDS: ASCORBIC ACID 500 MG TAB PO SCH (09:00)
[2017-08-12] MEDS: amLODIPine 2.5 MG TAB PO SCH ×2 (09:00→21:01)
[2017-08-12] MEDS: CHOLECALCIFEROL 1,000 UNIT TAB PO SCH (09:00)
[2017-08-12] MEDS: MULTIVITAMINS, THERA 1 EACH TAB PO SCH (09:00)
--- NOTE | 2017-08-12 09:03 | XR ---
EXAMINATION TYPE: XR abdomen acute w cxr DATE OF EXAM: 08/12/2017 COMPARISON: 08/10/2017 HISTORY: Abdominal pain and chest pain. Recent bowel surgery. TECHNIQUE: Single chest radiograph and 2 view abdominal radiograph were obtained. FINDINGS: Enteric tube is appropriately placed coursing beyond the gastroesophageal junction with its fenestrat ed portion in the region of the gastric body and its distal portion the region of the gastric pylorus . The lungs demonstrate probable chronic pleural thickening that is symmetric at the costophrenic ang les and hyperinflation as well as coarsened reticular markings without focal consolidation or pneumot horax. Moderate degenerative changes of thoracic spine are noted. Cardiac size is upper limits of nor mal. Moderate to severe degenerative changes of the visualized lumbosacral spine are seen with overlying s taples at the L4-S1 levels, left para midline. Degenerative changes of the femoral acetabular joints are also seen. No evidence of enlarged bowel or abnormal differential air-fluid levels. There is no e vidence for pneumoperitoneum. IMPRESSION: 1. Appropriately placed enteric tube. 2. No acute cardiopulmonary process. 3. Nonobstructive bowel gas pattern with postsurgical changes.
[2017-08-12] MEDS ORDERED: BISACODYL 10 MG SUPP RECTAL STA (11:18)
--- NOTE | 2017-08-12 12:57 | P.PN ---
Subjective Progress Note Date: 08/12/17 Principal diagnosis: Strangulated small bowel in ventral hernia Patient seen and examined at bedside. He states that he is very comfortable. He has ambulated and is urinating well. He denies any bowel function at this time. His NG tube is in place. Per nursing he has had 300 mL of NG tube output over the past 12 hours. Objective - Vital Signs Vital signs: Vital Signs Temp 97.6 F 08/12/17 07:16 Pulse 80 08/12/17 12:21 Resp 16 08/12/17 07:16 BP 146/50 08/12/17 09:40 Pulse Ox 93 L 08/12/17 07:16 Intake & Output 08/11/17 08/12/17 08/12/17 18:59 06:59 18:59 Intake Total 50 Output Total 450 675 Balance -400 -675 Weight 72.575 kg Intake: Intake, IV Titration 50 Amount Piperacillin-Tazobactam 3 50 .375 gm In Dextrose/Water 1 50ml.bag @ 12.5 mls/hr IVPB Q8H [facility] Rx#: [id number] Oral 0 Output: Gastric Drainage 325 Urine 450 350 Other: Voiding Method Urinal # Voids 2 - Constitutional General appearance: Present: cooperative, no acute distress - EENT Eyes: Present: EOMI, PERRLA ENT: Present: hearing grossly normal - Neck Neck: Present: normal ROM. Absent: lymphadenopathy, stridor - Respiratory Details: No difficulty with respiration - Gastrointestinal Gastrointestinal Comment(s): Soft, appropriate tenderness, nondistended, no rebound, no guarding, incision site clean dry and intact, bowel sounds present - Integumentary Integumentary: Present: normal turgor - Psychiatric Psychiatric: Present: A&O x's 3, appropriate affect, intact judgment & insight - Labs CBC & Chem 7: 08/12/17 06:39 08/12/17 06:39 Labs: Abnormal Lab Results - Last 24 Hours (Table) 08/12/17 08/12/17 Range/Units 06:39 06:39 RBC 4.21 L (4.30-5.90) m/uL Hgb 12.1 L (13.0-17.5) gm/dL Hct 37.3 L (39.0-53.0) % Lymphocytes # 0.8 L (1.0-4.8) k/uL BUN 23 H (9-20) mg/dL Glucose 71 L (74-99) mg/dL Calcium 8.0 L (8.4-10.2) mg/dL Assessment and Plan (1) Incarcerated hernia of abdominal cavity Status: Acute Plan: Status post exploratory laparotomy with small bowel resection and hernia repair POD#4 Continue nothing by mouth and IV fluids Continue NG tube to low intermittent suction Continue pain control Increase activity Okay for by mouth meds Incentive spirometry Leukocytosis resolved Acute abdominal series ordered Will try Dulcolax suppository today Medical recommendations appreciated
[2017-08-12] MEDS ORDERED: cloNIDine HCL 0.1 MG TAB PO PRN (16:04)
--- NOTE | 2017-08-12 17:50 | PN ---
PROGRESS NOTE DATE OF SERVICE: 08/12/2017 INTERVAL HISTORY: This 86-year-old gentleman who was admitted after exploratory laparotomy also NG tube at this time. No chest pain. No palpitations. Patient also has some atelectasis. No fever. No cough. EXAM: Alert and oriented x3. Pulse 86, blood pressure 171/74, respirations 17, temperature 97.9, pulse ox 94% on room air. HEENT: Conjunctivae normal. NECK: No jugular venous distention. CARDIOVASCULAR: S1, S2 muffled. RESPIRATORY: Breath sounds diminished in the bases. A few scattered rhonchi. No crackles. ABDOMEN: Soft, status post surgery. LEGS: No swelling. NERVOUS SYSTEM: No focal deficits. LABS: WBC 7.2, hemoglobin is 12.1. ASSESSMENT: 1. Status post exploratory laparotomy as well as small-bowel resection with a primary anastomosis for strangulated small-bowel in the hernia sac with the beginning of necrosis. 2. Left lower lobe atelectasis. 3. Hypertension. 4. History of anxiety. 5. History of hyponatremia. 6. History of gastroesophageal reflux disease. 7. History of anemia. 8. History of hiatal hernia. 9. FULL CODE. RECOMMENDATIONS AND DISCUSSION: Continue with current management and symptomatic treatment. Otherwise at this time, I would recommend continuing with current medications of bronchodilators p.r.n., hydralazine. Otherwise, continue to monitor. Further recommendations to follow. Add clonidine, also. Otherwise, resume home medications once the patient is p.o. MMELIL / IJN: [id number] /
[2017-08-13] MEDS: hydrALAZINE HCL 20 MG/ML 1 ML VIAL IVP PRN ×2 (02:24→23:00)
[2017-08-13] MEDS: SODIUM CHLORIDE 0.9% 1,000 ML IV SCH ×2 (03:12→03:52)
[2017-08-13] MEDS: PIPERACILLIN-TAZOBACTAM 3.375 GM in DEXTROSE/WATER 1 50ML.BAG IVPB SCH ×2 (03:13→12:31)
[2017-08-13] MEDS: LEVALBUTEROL NEB 1.25 MG/3 ML AMP INHALATION SCH ×3 (08:35→20:42)
[2017-08-13] MEDS: ASCORBIC ACID 500 MG TAB PO SCH (08:36)
[2017-08-13] MEDS: HEPARIN SODIUM,PORCINE 5,000 UNIT/ML 1 ML VIAL SQ SCH ×3 (08:36→22:59)
[2017-08-13] MEDS: buPROPion SR 100 MG TABLET.ER PO SCH (08:36)
[2017-08-13] MEDS: PANTOPRAZOLE 40 MG/10 ML VIAL IV SCH (08:37)
[2017-08-13] MEDS: amLODIPine 2.5 MG TAB PO SCH ×2 (08:37→19:56)
[2017-08-13] MEDS: DOCUSATE 100 MG CAP PO SCH (08:37)
[2017-08-13] MEDS: FERROUS SULFATE 325 MG TAB PO SCH (08:37)
[2017-08-13] MEDS: MULTIVITAMINS, THERA 1 EACH TAB PO SCH (12:31)
--- NOTE | 2017-08-13 13:49 | P.PN ---
Subjective Progress Note Date: 08/13/17 Principal diagnosis: Strangulated small bowel in ventral hernia Patient seen and examined at bedside. He is comfortable. He is tolerating clear liquid diet after the removal of his nasogastric tube. He has continued to have flatus and has had 1 bowel movement. Objective - Vital Signs Vital signs: Vital Signs Temp 97.2 F L 08/13/17 07:00 Pulse 73 08/13/17 07:00 Resp 16 08/13/17 07:00 BP 133/64 08/13/17 07:00 Pulse Ox 94 L 08/13/17 07:00 Intake & Output 08/12/17 08/13/17 08/13/17 18:59 06:59 18:59 Intake Total 450 800 Output Total 475 1025 Balance -25 -1025 800 Weight 72.575 kg Intake: IV 800 Sodium Chloride 0.9% 1, 800 000 ml @ 75 mls/hr IV . [id number] [facility] Rx#:[id number] Intake, IV Titration 350 Amount Piperacillin-Tazobactam 3 50 .375 gm In Dextrose/Water 1 50ml.bag @ 12.5 mls/hr IVPB Q8H [facility] Rx#: [id number] Sodium Chloride 0.9% 1, 300 000 ml @ 75 mls/hr IV . [id number] [facility] Rx#:[id number] Oral 100 Output: Drainage 75 75 Medial Abdomen 75 75 Urine 400 950 Other: Voiding Method Urinal # Voids 1 2 # Bowel Movements 1 - Constitutional General appearance: Present: cooperative, no acute distress - EENT Eyes: Present: EOMI, PERRLA - Neck Neck: Present: normal ROM. Absent: lymphadenopathy, stridor - Respiratory Details: No difficulty with respiration - Cardiovascular Rhythm: regular Heart sounds: normal: S1, S2 - Gastrointestinal Gastrointestinal Comment(s): Soft, appropriate tenderness, nondistended, no rebound, no guarding, incision site clean dry and intact - Integumentary Integumentary: Present: normal turgor - Psychiatric Psychiatric: Present: A&O x's 3, appropriate affect, intact judgment & insight - Labs CBC & Chem 7: 08/12/17 06:39 08/12/17 06:39 Assessment and Plan (1) Incarcerated hernia of abdominal cavity Status: Acute Plan: Status post exploratory laparotomy with small bowel resection and hernia repair POD#5 Advanced to full liquid diet Continue pain control Increase activity Incentive spirometry Discharge planning Medical recommendations appreciated
--- NOTE | 2017-08-13 15:27 | P.CONS ---
History of Present Illness - Chief Complaint Medical debility - History of Present Illness I had the opportunity to see patient for inpatient rehab consultation with regard to medical debility. Patient admitted to [facility] August 08 with abdominal pain. Computed tomography scan of abdomen and pelvis demonstrated proximal small bowel obstruction/incarcerated hernia. Also moderate hiatal hernia, simple right renal cyst, left inguinal hernia, DDD, left-sided diverticulosis. On date of admission underwent repair of hernia by Dr. Renee. Started therapy. PT reports minimal assistance for bed mobility. Modified independent for gait 440 feet with IV pole. OT reports independent with upper dressing and minimal assistance for lower dressing. Supervision to minimal assistance for bathing. Supervision for toileting. Minimal assistance for transfers. Previous functional history as elicited patient and corroborated by son: 86-year -old left-handed white male who is lives and one for home with . Retired. Independent with cooking, laundry, driving, standing shower and gait without device. Regular doctors Dr. Golden. Denies tobacco history. Rare drink and currently drinks only nonalcoholic beer. Note with multiple TIAs and/or strokes and now at [facility]. Family history father with rheumatoid arthritis. Mother of old age. Review of Systems Review of systems: ENT: Denies sneezes or discharge. Eyes: Denies discharge or photophobia. Cardiac: Denies chest pain or palpitation. Pulmonary: Denies cough or shortness of breath. Gastrointestinal: Abdominal discomfort. Genitourinary: Denies discharge or frequency. Musculoskeletal: Denies muscle or bone aches. Neurologic: Mild generalized weakness. Endocrine: Denies shakes or sweats. Oncology: Denies cancers. Dermatologic: Denies rash, itching, pruritus. ALLERGY/immunology: Denies sneezes, rashes. Past Medical History Past Medical History: GERD/Reflux, Hypertension Additional Past Medical History / Comment(s): anemia History of Any Multi-Drug Resistant Organisms: None Reported Past Surgical History: Tonsillectomy Additional Past Surgical History / Comment(s): small bowel resection with hiatal hernia repair 08/08/17 Past Anesthesia/Blood Transfusion Reactions: No Reported Reaction Past Psychological History: Anxiety Smoking Status: Never smoker Past Alcohol Use History: None Reported Past Drug Use History: None Reported Medications and Allergies Home Medications Medication Instructions Recorded Confirmed Type Ascorbic Acid [Vitamin C] 500 mg PO DAILY 08/08/17 08/08/17 History Cholecalciferol [Vitamin D3] 500 unit PO Q48H 08/08/17 08/08/17 History Docusate [Colace] 100 mg PO DAILY 08/08/17 08/08/17 History Ferrous Sulfate [Feosol] 325 mg PO DAILY 08/08/17 08/08/17 History Multivitamins, Thera [Multivitamin 1 tab PO DAILY 08/08/17 08/08/17 History (formulary)] Omeprazole [PriLOSEC] 20 mg PO AC-BRKFST 08/08/17 08/08/17 History amLODIPine [Norvasc] 2.5 mg PO BID 08/08/17 08/08/17 History buPROPion SR [Wellbutrin Sr] 100 mg PO DAILY 08/08/17 08/08/17 History cycloSPORINE [Restasis] 1 applicator BOTH EYES DAILY PRN 08/08/17 08/08/17 History Allergies Allergy/AdvReac Type Severity Reaction Status Date / Time No Known Allergies Allergy Verified 08/08/17 16:14 Physical Exam Vitals: Vital Signs Temp Pulse Pulse Pulse Pulse Resp BP 08/13/17 14:53 97.3 F L 69 17 149/74 08/13/17 07:00 97.2 F L 73 16 133/64 08/13/17 03:05 98.7 F 58 L 16 181/77 08/12/17 22:36 98 F 83 17 157/68 08/12/17 19:33 80 08/12/17 19:23 78 08/12/17 16:00 86 80 76 17 Pulse Ox 08/13/17 14:53 94 L 08/13/17 07:00 94 L 08/13/17 03:05 92 L 08/12/17 22:36 93 L 08/12/17 19:33 08/12/17 19:23 08/12/17 16:00 Intake and Output 08/13/17 08/13/17 08/13/17 06:59 14:59 22:59 Intake Total 800 Output Total 750 Balance -750 800 Intake: IV 800 Sodium Chloride 0.9% 1, 800 000 ml @ 75 mls/hr IV . [id number] [facility] Rx#:[id number] Output: Urine 750 Other: # Voids 1 2 # Bowel Movements 1 Weight 72.575 kg Patient Weight 08/14/17 06:59 Weight 72.575 kg Skin: Atrophic, intact. General: Medium build and comfortable appearance. Head: Normocephalic, atraumatic. Eyes: Symmetric. Pupils equal round. Ears: Symmetric. Hearing within normal limits. Mouth: Clear. Neck: Supple. Carotid without bruit. Cardiac: Regular rate and rhythm. Lungs: Clear anteriorly and posteriorly. Abdomen: Obscured by binder, nontender. Extremities: Normal tone. Neurological: Mental status: Alert, cooperative, pleasant. Cranial nerves: Symmetric facial tone and trapezius. Motor: Active movement all 4 limbs with normal strength at ankles. Sensation: Intact throughout. DTRs: Symmetric and equal throughout. Mobility: Sits and stands with standby assistance. Results CBC & Chem 7: 08/12/17 06:39 08/12/17 06:39 Chest x-ray: report reviewed (Left base atelectasis only.) CT scan - abdomen: report reviewed (Demonstrated small bowel obstruction proximal, incarcerated hernia. Also moderate hiatal hernia, simple right renal cyst, left inguinal hernia, DDD, left sided diverticulosis.) Assessment and Plan (1) Incarcerated hernia of abdominal cavity Status: Acute Plan: Impression: 1. Medical debility. 2. Small bowel obstruction, incarcerated hernia, status post repair. 3. Essential hypertension. 4. GERD. Comments and plan: At this time PT and OT are ongoing. Safety concerns noted and does demonstrate the ability tolerate and benefit from therapies. Patient prefers discharge or transfer to [facility] as his currently is there. Patient could [facility] subacute rehab there.
--- NOTE | 2017-08-13 17:29 | PN ---
PROGRESS NOTE DATE OF SERVICE: 08/13/2017 INTERVAL HISTORY: This 86-year-old gentleman who was admitted after exploratory laparotomy as well as small bowel resection with primary anastomosis is improving significantly. NG tube is out at this time. No chest pain. No palpitations. No fever. PHYSICAL EXAM: Alert and oriented x3. Pulse 69, blood pressure 149/70, respiration 17, temperature 97.2, pulse ox 94% on room air. HEENT: Conjunctivae normal. NECK: No jugular venous distention. CARDIOVASCULAR: S1, S2 muffled. Respiratory: Breath sounds diminished in the bases. A few scattered rhonchi. No crackles. ABDOMEN: Soft, status post surgery. No mass palpable. Legs no edema. No swelling. Nervous system: Higher functions as mentioned earlier. Moves all 4 limbs. No focal motor or sensory deficits. Lymphatics: No lymph nodes palpable in the neck, axillae or groin. Skin no ulcer, rash or bleeding. LABS: WBC 7.2, hemoglobin 12.1. Otherwise other labs are noted. ASSESSMENT: 1. Status post exploratory laparotomy as well as small bowel resection with primary anastomosis. Strangulated small bowel in the hernia sac with the beginning of necrosis. 2. Left lower lobe atelectasis. Improving. 3. Hypertension. 4. History of anxiety. 5. Hyponatremia. 6. History of gastroesophageal reflux disease. 7. History of anemia. 8. History of hiatal hernia. 9. FULL CODE. RECOMMENDATIONS AND DISCUSSION: I recommend to continue current medications, management and symptomatic treatment. Closely follow with surgery. Guarded prognosis. Further recommendations to follow. MMODL / IJN: [id number] /
[2017-08-14] MEDS: PANTOPRAZOLE 40 MG/10 ML VIAL IV SCH (07:45)
[2017-08-14] MEDS: LEVALBUTEROL NEB 1.25 MG/3 ML AMP INHALATION SCH ×3 (08:00→19:47)
[2017-08-14] MEDS: HEPARIN SODIUM,PORCINE 5,000 UNIT/ML 1 ML VIAL SQ SCH ×2 (09:45→17:10)
[2017-08-14] MEDS: DOCUSATE 100 MG CAP PO SCH (09:50)
[2017-08-14] MEDS: ASCORBIC ACID 500 MG TAB PO SCH (09:50)
[2017-08-14] MEDS: buPROPion SR 100 MG TABLET.ER PO SCH (09:50)
[2017-08-14] MEDS: amLODIPine 2.5 MG TAB PO SCH ×2 (09:50→20:23)
[2017-08-14] MEDS: FERROUS SULFATE 325 MG TAB PO SCH (09:50)
[2017-08-14] MEDS: SODIUM CHLORIDE 0.9% 1,000 ML IV SCH (10:27)
[2017-08-14] MEDS: MULTIVITAMINS, THERA 1 EACH TAB PO SCH (13:00)
[2017-08-14] MEDS: CHOLECALCIFEROL 1,000 UNIT TAB PO SCH (13:05)
--- NOTE | 2017-08-14 15:14 | P.PN ---
Subjective Progress Note Date: 08/14/17 Patient is feeling better today. He is tolerating his diet. He is having continued sinus bowel movement. Ambulating and working with PT. Objective - Vital Signs Vital signs: Vital Signs Temp 98.2 F 08/14/17 08:00 Pulse 84 08/14/17 14:27 Resp 18 08/14/17 08:00 BP 167/89 08/14/17 08:00 Pulse Ox 95 08/14/17 08:00 Intake & Output 08/13/17 08/14/17 08/14/17 18:59 06:59 18:59 Intake Total 800 900 Output Total 750 Balance 800 900 -750 Weight 72.575 kg 72.575 kg Intake: IV 800 900 Sodium Chloride 0.9% 1, 800 900 000 ml @ 75 mls/hr IV . [id number] BELLO Rx#:[id number] Output: Urine 750 Other: Voiding Method Urinal # Voids 2 2 # Bowel Movements 1 1 - Constitutional General appearance: Present: cooperative - Cardiovascular Rhythm: regular - Gastrointestinal Gastrointestinal Comment(s): Soft nontender nondistended incisions clean dry and intact - Labs CBC & Chem 7: 08/12/17 06:39 08/12/17 06:39 Assessment and Plan Plan: Continue diet continue emulating working with PT. Working on placement for rehabilitation.
--- NOTE | 2017-08-14 19:31 | PN ---
PROGRESS NOTE DATE OF SERVICE: 08/14/2017 INTERVAL HISTORY: This 86-year-old gentleman who was admitted after expiratory laparotomy and bowel resection is being closely monitored. No chest pain. No palpitations. NG tube is out at this time. PHYSICAL EXAM: Alert and oriented x3. Pulse 87, Blood pressure 130/77, respiration 18, temp 97.7, pulse ox 97% on room air. HEENT: Conjunctivae normal. Oral mucosa moist. Neck is no jugular venous distention. No carotid bruit. No lymph nodes enlargement. Cardiovascular: S1, S2 muffled. Respiratory: Breath sounds diminished in the bases. A few scattered rhonchi. ABDOMEN: Soft, status post surgery. Legs are no edema. No swelling. Central nervous system: No focal deficits. LABS: WBC 7.2, hemoglobin 12.1. ASSESSMENT: 1. Status post exploratory laparotomy as well as small bowel resection with primary anastomosis. Strangulated bowel hernia and the hernia sac with the beginning of necrosis. 2. Left lower lobe atelectasis improving. 3. Hypertension. 4. History of anxiety. 5. Hyponatremia. 6. History of gastroesophageal reflux disease. 7. Gait dysfunction. 8. History of anemia. 9. History of hiatal hernia. RECOMMENDATIONS AND DISCUSSION: Recommend to continue current medications. Continue symptomatic treatment. Otherwise, at this time, Dr. Tobar input appreciated. Possible ECF rehab because of multiple complex medical issues and poor social support. Guarded prognosis. Further recommendations to follow. Safety concerns. MMODL / IJN: [id number] /
[2017-08-14] MEDS: hydrALAZINE HCL 20 MG/ML 1 ML VIAL IVP PRN (21:25)
[2017-08-15] MEDS: HEPARIN SODIUM,PORCINE 5,000 UNIT/ML 1 ML VIAL SQ SCH ×3 (00:31→16:44)
[2017-08-15] MEDS: LEVALBUTEROL NEB 1.25 MG/3 ML AMP INHALATION SCH ×3 (07:09→21:03)
[2017-08-15] MEDS: buPROPion SR 100 MG TABLET.ER PO SCH (07:46)
[2017-08-15] MEDS: amLODIPine 2.5 MG TAB PO SCH ×2 (07:46→20:11)
[2017-08-15] MEDS: DOCUSATE 100 MG CAP PO SCH (07:46)
[2017-08-15] MEDS: FERROUS SULFATE 325 MG TAB PO SCH (07:46)
[2017-08-15] MEDS: ASCORBIC ACID 500 MG TAB PO SCH (07:46)
[2017-08-15] MEDS: PANTOPRAZOLE 40 MG/10 ML VIAL IV SCH (07:47)
[2017-08-15] MEDS: SODIUM CHLORIDE 0.9% 1,000 ML IV SCH ×3 (09:10→17:20)
[2017-08-15] MEDS: MULTIVITAMINS, THERA 1 EACH TAB PO SCH (11:31)
--- NOTE | 2017-08-15 14:08 | P.PN ---
Subjective Progress Note Date: 08/15/17 Patient is feeling better today. He is tolerating his diet. He is having continued bowel movement. Ambulating and working with PT. Objective - Vital Signs Vital signs: Vital Signs Temp 97.4 F L 08/15/17 07:00 Pulse 82 08/15/17 14:03 Resp 12 08/15/17 07:00 BP 127/60 08/15/17 07:00 Pulse Ox 94 L 08/15/17 07:00 Intake & Output 08/14/17 08/15/17 08/15/17 18:59 06:59 18:59 Intake Total 2500 600 Output Total 1500 800 Balance -1500 1700 600 Weight 72.575 kg Intake: IV 600 Sodium Chloride 0.9% 1, 600 000 ml @ 75 mls/hr IV . [id number] BE[facility]O Rx#:[id number] Intake, IV Titration 1500 Amount Sodium Chloride 0.9% 1, 1500 000 ml @ 75 mls/hr IV . [id number] BELLO Rx#:[id number] Oral 1000 Output: Urine 1500 800 Other: Voiding Method Urinal Urinal # Voids 1 1 2 # Bowel Movements 1 - Constitutional General appearance: Present: cooperative - Respiratory Details: Nonlabored - Cardiovascular Rhythm: regular - Gastrointestinal Gastrointestinal Comment(s): Soft nontender nondistended incisions clean dry and intact - Psychiatric Psychiatric: Present: A&O x's 3 - Labs CBC & Chem 7: 08/12/17 06:39 08/12/17 06:39 Assessment and Plan Plan: Continue diet continue ambulating working with PT. Working on placement for rehabilitation.
--- NOTE | 2017-08-15 20:47 | PN ---
PROGRESS NOTE DATE OF SERVICE: 08/15/2017 INTERVAL HISTORY: This 86-year-old gentleman who was admitted after abdominal surgery is being closely monitored. No chest pain. No palpitations. No fever. The patient also being worked up for possible ECF rehab. Patient again reports significant difficulty in transferring in and out of the bed and as well as abdominal discomfort also. Patient also reports poor support at home also. No chest pain. No palpitations. ON EXAM: Alert, oriented times three. Pulse is 72, blood pressure 130/62, respirations 16, temperature 98.1, pulse ox 94% room air. HEENT: Conjunctivae normal. Oral mucosa moist. Neck is no jugular venous distention. No carotid bruit. No lymph node enlargement. Cardiovascular S1, S2 muffled. Respiration: Breath sounds diminished in the bases. A few scattered rhonchi. No crackles. ABDOMEN: Soft, status post surgery. Legs are no edema, no swelling. Central nervous system: No focal deficits. LABS: WBC 7.9, hemoglobin is 12.1. ASSESSMENT: 1. Status post exploratory laparotomy, as well as small-bowel resection with primary anastomosis, strangulation of the bowel hernia and hernia sac with the beginning of necrosis. 2. Left lower that is improving. 3. Hypertension. 4. History of anxiety. 5. Hyperlipidemia. 6. History of gastroesophageal reflux disease. RECOMMENDATIONS AND DISCUSSION: Recommend to continue current medications, continue symptomatic treatment, follow closely with surgery. PT/OT evaluation as mentioned earlier because of the patient difficulties and as well as poor social support, the patient is a good candidate for ECF rehab at this time. Once again, the prognosis guarded in this elderly individual. See orders for further details. MMODL / IJN: [id number] / MTDD
[2017-08-16] MEDS: HEPARIN SODIUM,PORCINE 5,000 UNIT/ML 1 ML VIAL SQ SCH ×2 (00:18→08:38)
[2017-08-16 03:33] VITALS: RESP 16
[2017-08-16] MEDS: LEVALBUTEROL NEB 1.25 MG/3 ML AMP INHALATION SCH ×2 (07:14→12:26)
[2017-08-16 07:23] VITALS: BP 164/76; TEMP 97.5
[2017-08-16] MEDS: FERROUS SULFATE 325 MG TAB PO SCH (08:38)
[2017-08-16] MEDS: ASCORBIC ACID 500 MG TAB PO SCH (08:38)
[2017-08-16] MEDS: PANTOPRAZOLE 40 MG/10 ML VIAL IV SCH (08:38)
[2017-08-16] MEDS: DOCUSATE 100 MG CAP PO SCH (08:38)
[2017-08-16] MEDS: amLODIPine 2.5 MG TAB PO SCH (08:38)
[2017-08-16] MEDS: buPROPion SR 100 MG TABLET.ER PO SCH (08:38)
[2017-08-16] MEDS: SODIUM CHLORIDE 0.9% 1,000 ML IV SCH (10:08)
--- NOTE | 2017-08-16 11:37 | P.PN ---
Subjective Progress Note Date: 08/16/17 This 86-year-old gentleman with a past medical history of multiple medical problems was admitted with the abdominal pain. Patient underwent expert laparotomy as well as small bowel resection with primary anastomosis. Surgery saw the patient. The patient improved significantly. But however the patient had significant gait dysfunction. Patient difficulty in ambulating and as well as some getting in and out of the bed. Patient also had a poor social support. ECF rehab is being strongly recommended for patient safety as well as continued rehabilitation in this elderly individual with the multiple complex medical issues. REVIEW OF SYSTEMS: ENT: No diminished vision or hearing. CARDIOVASCULAR: Mentioned earlier. RESPIRATORY: As mentioned earlier. GI: No nauscea, vomiting or diarrhea. : No dysuria or retention. NERVOUS SYSTEM: No numbness or weakness. ALLERGY/IMMUNOLOGY: No asthma or hay fever. MUSCULOSKELETAL: As mentioned earlier. HEMATOLOGY/ONCOLOGY: No history of anemia. ENDOCRINE: No history of diabetes or hypothyroidism. CONSTITUTIONAL: As mentioned earlier. DERMATOLOGY: Negative. PSYCHIATRY: Mentioned earlier. RHEUMATOLOGY: Negative. . Objective - Vital Signs Vital signs: Vital Signs Temp 97.5 F L 08/16/17 07:00 Pulse 71 08/16/17 07:24 Resp 16 08/16/17 07:00 BP 164/76 08/16/17 07:00 Pulse Ox 97 08/16/17 07:00 Intake & Output 08/15/17 08/16/17 08/16/17 18:59 06:59 18:59 Intake Total 600 1380 Balance 600 1380 Intake: IV 600 900 Sodium Chloride 0.9% 1, 600 900 000 ml @ 75 mls/hr IV . [id number] BELLO Rx#:[id number] Oral 480 Other: # Voids 2 - Exam On exam, alert and oriented x3. HEENT: Conjunctivae normal. eyes normal. NECK: No JVD. No thyroid enlargement. No LNs CARDIOVASCULAR: S1, S2 muffled. No murmur RESPIRATION: Breath sounds diminished in the bases. No rhonchi or crackles. No bronchial breathing. ABDOMEN: Soft, nontender . No guarding. no masses palpable. No ascites, No hepatosplenomegaly.Bowel sounds heard. Status post recent surgery LEGS: No edema. no swelling NERVOUS SYSTEM: Cranial N 2-12 grossly normal. Moves all 4 limbs. No focal deficits. No sensory deficit. No signs of cerebellar dysfucntion. Diffuse weakness present. Skin: no ulcer no rash Joints: No active swelling. No inflammation. Lymphatic system. No LN neck axilla or groin. Medications Medications are reviewed doses were noted. - Labs CBC & Chem 7: 08/12/17 06:39 08/12/17 06:39 Assessment and Plan Plan: Final diagnosis 1. Status post respiratory laparotomy as well as small bowel resection with the primary anastomosis. 2. Left lower lobe atelectasis. 3. Hypertension. 4. History of anxiety. 5. Hyperlipidemia. 6. History of GERD. 7. Gait dysfunction 8. Poor social support
[2017-08-16 12:37] VITALS: PULSE 75
[2017-08-16] MEDS: CHOLECALCIFEROL 1,000 UNIT TAB PO SCH (13:20)
[2017-08-16] MEDS: MULTIVITAMINS, THERA 1 EACH TAB PO SCH (13:24)
--- NOTE | 2017-08-16 14:46 | P.DS ---
Providers Date of admission: 08/08/17 11:16 Expected date of discharge: 08/16/17 Attending physician: Melisa Renee DO Consults: 08/08/17 17:08 Consult Physician Routine Consulting Provider: Baldev Bentley Consult Reason/Comments: Medical management post-op Do you want consulting provider notified?: Yes 08/13/17 13:29 Consult Physician Routine Consulting Provider: Brock Tobar Consult Reason/Comments: in patient rehab Do you want consulting provider notified?: Yes Primary care physician: Gerardo Flynn - Discharge Diagnosis(es) (1) Incarcerated hernia of abdominal cavity Current Visit: Yes Status: Acute Hospital Course: A 6-year-old male initially presented with a strangulated ventral hernia. He was taken to the operating room on his day of presentation. Postoperatively the patient was sent to the surgical floor with an NG tube in place with an nothing by mouth diet. Over the next few days his pain improved and his output from his NG tube decreased. The patient began to have bowel function and an abdominal x- ray was performed which illustrated no evidence of ileus or obstruction. The patient was begun on a clear liquid diet and advanced over the next few days. The patient was ambulating well and urinating well. He continued to have bowel function. The patient is now stable for discharge. Procedures: Laparoscopic ventral hernia repair converted to open hernia repair with small bowel resection Patient Condition at Discharge: Stable Plan - Discharge Summary New Discharge Prescriptions: New HYDROcodone/APAP 5-325MG [[place] 5-325] 1 tab PO Q6HR PRN #24 tab PRN Reason: Pain Levalbuterol Nebulized [Xopenex Nebulized] 1.25 mg INHALATION RT-TID ml Continue cycloSPORINE [Restasis] 1 applicator BOTH EYES DAILY PRN PRN Reason: Dry Eye(S) buPROPion SR [Wellbutrin SR] 100 mg PO DAILY Multivitamins, Thera [Multivitamin (formulary)] 1 tab PO DAILY Ferrous Sulfate [Iron (65 MG Elemental)] 325 mg PO DAILY Docusate [Colace] 100 mg PO DAILY Cholecalciferol [Vitamin D3] 500 unit PO Q48H Ascorbic Acid [Vitamin C] 500 mg PO DAILY amLODIPine [Norvasc] 2.5 mg PO BID Omeprazole [PriLOSEC] 20 mg PO AC-BRKFST Discharge Medication List Ascorbic Acid [Vitamin C] 500 mg PO DAILY 08/08/17 [History] Cholecalciferol [Vitamin D3] 500 unit PO Q48H 08/08/17 [History] Docusate [Colace] 100 mg PO DAILY 08/08/17 [History] Ferrous Sulfate [Iron (65 MG Elemental)] 325 mg PO DAILY 08/08/17 [History] Multivitamins, Thera [Multivitamin (formulary)] 1 tab PO DAILY 08/08/17 [History ] Omeprazole [PriLOSEC] 20 mg PO AC-BRKFST 08/08/17 [History] amLODIPine [Norvasc] 2.5 mg PO BID 08/08/17 [History] buPROPion SR [Wellbutrin SR] 100 mg PO DAILY 08/08/17 [History] cycloSPORINE [Restasis] 1 applicator BOTH EYES DAILY PRN 08/08/17 [History] HYDROcodone/APAP 5-325MG [[place] 5-325] 1 tab PO Q6HR PRN #24 tab 08/13/17 [Rx] Levalbuterol Nebulized [Xopenex Nebulized] 1.25 mg INHALATION RT-TID ml [Rx] Follow up Appointment(s)/Referral(s): Gerardo Flynn MD [Primary Care Provider] - 1 Week (after dc from [facility]) Jose Alejandro Davis MD [STAFF PHYSICIAN] - 3 Days (while at [facility]) Melisa Renee DO [Doctor of Osteopathic Medicine] - 08/25/17 9:00 am Activity/Diet/Wound Care/Special Instructions: OK to shower. Use gauze on incision as necessary. Abdominal binder. [place] to be addressed by during follow up visit. DIet: soft Foods IS Q1H x 10 [place] cbc,bmp in 3 days Activity: as tolerated, Discharge Disposition: TRANSFER TO SNF/[facility]
== END 2017-08-16 15:15 | DRG 330 ==
LOC: EC 08:22 → 3SUR 11:16
PROVIDERS: ADMIT Surgery; ATTEND Surgery
PROC: 0WQF0ZZ Repair Abdominal Wall, Open Approach (ICD-10-PCS; 2017-08-08)
PROC: 0WJF4ZZ Inspection of Abdominal Wall, Percutaneous Endoscopic Approach (ICD-10-PCS; 2017-08-08)
PROC: 0DB80ZZ Excision of Small Intestine, Open Approach (ICD-10-PCS; principal; 2017-08-08 12:30)
DX: K43.6 Other and unspecified ventral hernia with obstruction, without gangrene (principal); E87.1 Hypo-osmolality and hyponatremia; I10 Essential (primary) hypertension; J98.11 Atelectasis; N28.1 Cyst of kidney, acquired; F41.9 Anxiety disorder, unspecified; R53.81 Other malaise; K21.9 Gastro-esophageal reflux disease without esophagitis; E78.5 Hyperlipidemia, unspecified; Z90.49 Acquired absence of other specified parts of digestive tract; Z53.31 Laparoscopic surgical procedure converted to open procedure; Z79.899 Other long term (current) drug therapy; Z82.61 Family history of arthritis
CPT/HCPCS: 36415; 71010; 74022; 74177; 80048; 80053; 81001; 83605; 85025; 88307; 94640; 96361; 96374; 99285